=== PATIENT | female | born 1945 | race Caucasian/White ===

== ENCOUNTER 2018-06-14 17:39 | Emergency (ER) | payer MEDICARE, OTHER ==
[~2018-06-14] VITALS: Ht 160 cm; Wt 90.9 kg
[2018-06-14 17:45] VITALS: BP 160/100
[2018-06-14 17:53] LABS: GLUCOSE,POINT OF CARE 249 MG/DL (70-110)
== END 2018-06-14 20:42 | disposition left against medical advice (07) ==
LOC: EMS 17:40
DX: Z53.21 Procedure and treatment not carried out due to patient leaving prior to being seen by health care provider (principal); R73.9 Hyperglycemia, unspecified

== ENCOUNTER 2025-04-21 19:13 | Emergency (ER) | payer OTHER ==
[~2025-04-21] VITALS: Ht 147.3 cm; Wt 70.5 kg
[2025-04-21 19:24] VITALS: BP 135/72; PULSE 83; RESP 16; TEMP 97.9; O2SAT 99
[2025-04-21] MEDS ORDERED: DIPH-1243 PO (20:28)
[2025-04-21] MEDS ORDERED: PERM60CR4 TP (20:28)
[2025-04-21] MEDS: PERMETHRIN 5% 60 GM CREAM TP ONE (20:51)
== END 2025-04-21 20:57 | disposition home or self-care (01) ==
LOC: EMS 19:13
DX: B86 Scabies (principal); E11.9 Type 2 diabetes mellitus without complications; I10 Essential (primary) hypertension
CPT/HCPCS: 82962; 99282